=== PATIENT | female | born 1995 | race Asian ===

== ENCOUNTER 2021-11-02 04:55 | Inpatient (IN) | payer MEDICAID, OTHER ==
[~2021-11-02] VITALS: Ht 160 cm; Wt 56.7 kg
[2021-11-02] MEDS ORDERED: ACETAMINOPHEN 325MG TABLET PO STA (07:50)
[2021-11-02] MEDS ORDERED: DEXT 5%/LACTATED RINGERS 1,000 ML IV SCH (09:00)
[2021-11-02] MEDS ORDERED: ACETAMINOPHEN 325MG TABLET PO PRN (09:00)
[2021-11-02] MEDS ORDERED: PROCHLORPERAZINE MALEATE 10MG TABLET PO NR (09:00)
[2021-11-02 09:41] LABS: HEMATOCRIT. 26.5 % (36.0-48.0); MEAN CORPUSCULAR HEMOGLOBIN 27.3 pg (28.0-32.0); MEAN CORPUSCULAR VOLUME 80.5 fL (81.0-99.0); MEAN PLATELET VOLUME 8.1 fl (7.4-10.4); PLATELET 244 x1000/uL (130-400); RED BLOOD CELL COUNT 3.29 mill/uL (4.2-5.4); RED CELL DISTRIBUTION WIDTH 13.7 % (11.6-14.6)
[2021-11-02 09:50] LABS: CHLORIDE 103 mEq/L (98-107)
[2021-11-02 10:15] LABS: B-HCG QUANTITATIVE 42098 mIU/mL (<3)
[2021-11-02 10:48] LABS: PLATELET ESTIMATE NORMAL
[2021-11-02 10:57] LABS: CLARITY URINE CLEAR (CLEAR); COLOR URINE YELLOW (YELLOW); KETONES URINE TRACE (NEGATIVE); LEUKOCYTE ESTERASE URINE 2+ (NEGATIVE); NITRITE URINE NEGATIVE (NEGATIVE); OCCULT BLOOD URINE 2+ (NEGATIVE); PH URINE 6.5 (4.5-8.0); PROTEIN URINE NEGATIVE (NEGATIVE); SPECIFIC GRAVITY URINE 1.013 (1.005-1.030); UROBILINOGEN URINE 0.2 E.U./dL (0.2-1.0)
[2021-11-02 11:30] LABS: *AMPHETAMINES SCREEN URINE NEGATIVE (NEGATIVE); *BARBITURATES SCREEN URINE NEGATIVE (NEGATIVE); *BENZODIAZEPINES SCREEN URINE NEGATIVE (NEGATIVE); *COCAINE SCREEN URINE NEGATIVE (NEGATIVE); CANNABINOID URINE SCREEN NEGATIVE (NEGATIVE); METHADONE URINE SCREEN NEGATIVE (NEGATIVE); OPIATES URINE SCREEN NEGATIVE (NEGATIVE); PHENCYCLIDINE URINE SCREEN NEGATIVE (NEGATIVE)
[2021-11-02] MEDS: BUTORPHANOL TARTRATE 2 MG/ML VIAL IV PRN ×2 (14:31→19:47)
[2021-11-02] MEDS ORDERED: PENICILLIN G POTASSIUM 5 MMU in DEXT 5% WATER 100 ML IV SCH (18:00)
[2021-11-02 20:00] VITALS: BP 103/55
[2021-11-02] MEDS ORDERED: MISOPROSTOL 200MCG TABLET PO SCH (20:00)
[2021-11-02] MEDS ORDERED: PENICILLIN G POTASSIUM 2.5 MMU in DEXTROSE 5% WATER 50 ML IV SCH (22:00)
[2021-11-02] MEDS: DEXT 5%/LACTATED RINGERS 1,000 ML IV SCH (22:52)
[2021-11-02] MEDS: MISOPROSTOL 200MCG TABLET PO SCH (23:43)
[2021-11-03] VITALS: BP 57/36
[2021-11-03] MEDS ORDERED: SODIUM CHLORIDE 0.9% 1,000 ML IV NR (00:15)
[2021-11-03 00:39] LABS: HEMATOCRIT. 28.3 % (36.0-48.0); HEMOGLOBIN. 9.1 g/dL (12.0-16.0); MEAN CORPUSCULAR HEMOGLOBIN 27.3 pg (28.0-32.0); MEAN CORPUSCULAR VOLUME 84.4 fL (81.0-99.0); MEAN PLATELET VOLUME 8.1 fl (7.4-10.4); MONOCYTES % 6.4 % (2.0-8.0); NEUTROPHILS % 79.6 % (40.0-76.0); PLATELET 239 x1000/uL (130-400); RED BLOOD CELL COUNT 3.35 mill/uL (4.2-5.4); RED CELL DISTRIBUTION WIDTH 13.8 % (11.6-14.6)
[2021-11-03] MEDS: DEXT 5%/LACTATED RINGERS 1,000 ML IV SCH ×3 (01:00→18:44)
[2021-11-03 01:40] LABS: CHLORIDE 107 mEq/L (98-107)
[2021-11-03] MEDS ORDERED: LEVO50TA8 MT (01:51)
[2021-11-03] MEDS: METRONIDAZOLE 500 MG PREMIX 100 ML IV SCH ×3 (02:14→18:42)
[2021-11-03] MEDS ORDERED: PENICILLIN G POTASSIUM 2.5 MMU in DEXTROSE 5% WATER 50 ML IV SCH (03:00)
[2021-11-03 03:08] LABS: PROTHROMBIN TIME 10.9 sec (9.6-11.0)
[2021-11-03] MEDS: AZTREONAM 2 GM in DEXT 5% WATER 100 ML IV SCH ×3 (03:17→21:29)
[2021-11-03 04:00] VITALS: BP 93/48
[2021-11-03] MEDS: MISOPROSTOL 200MCG TABLET PO SCH (04:44)
[2021-11-03] MEDS ORDERED: SUCCINYLCHOLINE CHLORIDE 200MG/10ML IV ONE (07:29)
[2021-11-03] MEDS ORDERED: PROPOFOL 200MG/20ML VIAL IV ONE (07:30)
[2021-11-03] MEDS ORDERED: MIDAZOLAM HCL 2 MG/2 ML VIAL ONE (07:30)
[2021-11-03] MEDS ORDERED: FENTANYL CITRATE/PF 50MCG/ML 2ML VIAL ONE (07:30)
[2021-11-03] MEDS: LEVOTHYROXINE SODIUM 50MCG TABLET PO SCH (07:40)
[2021-11-03] MEDS ORDERED: PHENYLEPHRINE HCL 10 MG/ML 1ML (IV VIAL) IV ONE (08:00)
[2021-11-03] MEDS ORDERED: METHYLERGONOVINE MALEATE 0.2 MG/ML ONE (08:17)
[2021-11-03] MEDS ORDERED: ONDANSETRON HCL 4MG/2ML INJ ONE (08:27)
[2021-11-03] MEDS ORDERED: KETOROLAC 30MG/ML VIAL ONE (08:27)
[2021-11-03] MEDS ORDERED: ONDANSETRON HCL 4MG/2ML INJ IV PRN (08:45)
[2021-11-03] MEDS ORDERED: MEPERIDINE HCL/PF 25MG/ML CPJ IV PRN (08:45)
[2021-11-03] MEDS ORDERED: FENTANYL CITRATE/PF 50MCG/ML 2ML VIAL IV PRN (08:45)
[2021-11-03 10:45] VITALS: BP 104/65
[2021-11-03] MEDS: MULTIVITAMINS,THER W-MINERALS TABLET PO SCH (10:55)
[2021-11-03] MEDS: DOCUSATE SODIUM 100MG CAPSULE PO SCH ×2 (10:55→18:41)
[2021-11-03] MEDS: IBUPROFEN 600MG TABLET PO SCH ×3 (10:57→21:00)
[2021-11-03 12:00] VITALS: BP 102/52
[2021-11-03] MEDS: METHYLERGONOVINE MALEATE 0.2MG TABLET PO SCH ×3 (12:42→23:27)
[2021-11-03] MEDS: FERROUS SULFATE 325MG TABLET PO SCH ×2 (12:42→18:41)
[2021-11-03 16:00] VITALS: BP 104/66
[2021-11-03 20:00] VITALS: BP 100/66
[2021-11-04] VITALS: BP 104/72
[2021-11-04] MEDS: METRONIDAZOLE 500 MG PREMIX 100 ML IV SCH ×2 (02:22→10:10)
[2021-11-04] MEDS: IBUPROFEN 600MG TABLET PO SCH ×2 (02:22→08:33)
[2021-11-04 04:00] VITALS: BP 92/58
[2021-11-04] MEDS: AZTREONAM 2 GM in DEXT 5% WATER 100 ML IV SCH (05:07)
[2021-11-04] MEDS: METHYLERGONOVINE MALEATE 0.2MG TABLET PO SCH (05:08)
[2021-11-04 06:21] LABS: BASOPHILS % 0.4 % (0.0-2.0); EOSINOPHILS % 3.2 % (0.0-5.0); HEMATOCRIT. 25.3 % (36.0-48.0); HEMOGLOBIN. 8.8 g/dL (12.0-16.0); LYMPHOCYTES % 22.9 % (20.0-50.0); MEAN CORPUSCULAR HEMOGLOBIN 27.7 pg (28.0-32.0); MEAN CORPUSCULAR VOLUME 79.6 fL (81.0-99.0); MEAN PLATELET VOLUME 8.5 fl (7.4-10.4); MONOCYTES % 7.4 % (2.0-8.0); NEUTROPHILS % 66.1 % (40.0-76.0); PLATELET 224 x1000/uL (130-400); RED BLOOD CELL COUNT 3.18 mill/uL (4.2-5.4); RED CELL DISTRIBUTION WIDTH 14.3 % (11.6-14.6)
[2021-11-04 06:26] LABS: CHLORIDE 106 mEq/L (98-107)
[2021-11-04 08:00] VITALS: BP 108/60
[2021-11-04] MEDS: FERROUS SULFATE 325MG TABLET PO SCH (08:32)
[2021-11-04] MEDS: LEVOTHYROXINE SODIUM 50MCG TABLET PO SCH (08:32)
[2021-11-04] MEDS: MULTIVITAMINS,THER W-MINERALS TABLET PO SCH (08:32)
[2021-11-04] MEDS: DOCUSATE SODIUM 100MG CAPSULE PO SCH (08:34)
[2021-11-04] MEDS ORDERED: FERR-63 PO (10:05)
[2021-11-04] MEDS ORDERED: MULT-1146 MT (10:05)
[2021-11-04] MEDS ORDERED: IBUP-2029 PO (10:05)
[2021-11-04] MEDS ORDERED: CLIN-194 MT (10:05)
[2021-11-04] MEDS ORDERED: POTASSIUM CHLORIDE 20MEQ TABLET SR PO NR (10:15)
[2021-11-04 11:50] VITALS: BP 108/70
[2021-11-04 12:21] VITALS: BP 108/70
== END 2021-11-04 13:17 | disposition home or self-care (01) | DRG 543 ==
LOC: ER 04:55 → EDBEDREQTM 08:27 → EDBEDREQ 08:27 → ENRESERV 09:31 → CANRESERV 09:31 → EDBEDREQSVC 11:39 → CANRESERV 15:35 → ENRESERV 15:35 → CANRESERV 16:31 → ENRESERV 16:31 → CANRESERV 17:43 → ENRESERV 17:43 → 7WST 19:28
PROVIDERS: ADMIT Specialist; ATTEND Specialist
PROC: 10D17ZZ Extraction of Products of Conception, Retained, Via Natural or Artificial Opening (ICD-10-PCS; principal; 2021-11-03)
DX: O03.37 Sepsis following incomplete spontaneous abortion (principal); A41.9 Sepsis, unspecified organism; O99.02 Anemia complicating childbirth; E03.9 Hypothyroidism, unspecified; Z20.822 Contact with and (suspected) exposure to COVID-19; O30.102 Triplet pregnancy, unspecified number of placenta and unspecified number of amniotic sacs, second trimester; Q51.3 Bicornate uterus; O99.282 Endocrine, nutritional and metabolic diseases complicating pregnancy, second trimester; Z3A.19 19 weeks gestation of pregnancy; O42.912 Preterm premature rupture of membranes, unspecified as to length of time between rupture and onset of labor, second trimester
CPT/HCPCS: 36415; 76805; 76810; 80053; 80305; 81003; 82962; 83605; 84702; 85025; 86762; 86850; 86900; 87070; 87075; 87077; 87426; 88305; 88307; 88309; 99285; J0330; J0595; J1885; J2210; J2250; J2370; J2405; J2540; J2704; J3010; J3490; J7060; Q0164